=== PATIENT | female | born 1955 | race Two or more races ===

== ENCOUNTER → 2024-12-31 | Outpatient (CLI) | payer MEDICARE, MEDICAID, SELFPAY ==
--- NOTE | 2024-12-31 09:37 | XR_ITS ---
Examination: Sinus series 4 views TECHNIQUE: Devon Carbajal lateral submentovertex sinus series 4 views Exam date and time: December 31 2024 0948 hours INDICATIONS: Sinus pressure and pain 2 years. FINDINGS: Significant opacity frontal ethmoid air cells Mucosal thickening up to 15 mm in the right maxillary antrum Haziness in the frontal air cells IMPRESSION: Chronic pansinusitis, most severe frontal ethmoid air cells
== END | disposition home or self-care (01) ==
PROVIDERS: PCP Internal Medicine; Referring Provider Internal Medicine; Visit Provider Internal Medicine
DX: J32.4 Chronic pansinusitis (principal)
CPT/HCPCS: 70220

== ENCOUNTER → 2025-03-13 | Outpatient (CLI) | payer MEDICARE, MEDICAID, SELFPAY ==
--- NOTE | 2025-03-13 12:42 | XR_ITS ---
Examination: Knee, right , 3 views Technique: Knee AP, lateral, oblique 3 views Date and time of exam: March 13, 2025 1426 hours INDICATIONS: Knee surgery right knee one year ago, right knee pain onset one week. FINDINGS: Prominent osteopenia Total right knee arthroplasty. Satisfactory alignment. No fracture. No loosening of the prosthetic components Small knee effusion IMPRESSION: Total right knee arthroplasty with satisfactory alignment
== END | disposition home or self-care (01) ==
PROVIDERS: PCP Internal Medicine; Referring Provider Orthopaedic Surgery; Visit Provider Orthopaedic Surgery
DX: M25.561 Pain in right knee (principal); Z96.651 Presence of right artificial knee joint
CPT/HCPCS: 73562

== ENCOUNTER → 2025-05-15 | Outpatient (CLI) | payer MEDICARE, MEDICAID, SELFPAY ==
--- NOTE | 2025-05-15 14:13 | XR_ITS ---
Examination: PA lateral chest 2 views TECHNIQUE: Upright PA lateral chest 2 views Date and time: 01/15/2025 1434 hours Comparison November 24, 2023 INDICATIONS: Dyspnea today FINDINGS: Normal heart size The lungs are clear. Moderate osteopenia IMPRESSION: No active disease
== END | disposition home or self-care (01) ==
PROVIDERS: PCP Internal Medicine; Referring Provider Internal Medicine; Visit Provider Internal Medicine
DX: R06.00 Dyspnea, unspecified (principal)
CPT/HCPCS: 71046

== ENCOUNTER → 2025-05-16 | Outpatient (CLI) | payer MEDICARE, MEDICAID, SELFPAY ==
[2025-05-16 08:13] LABS: Collection Type, Urine Clean Catch
[2025-05-16 08:29] LABS: Basophils % (Auto) 0 % (0-2.5); Eosinophils # (Auto) 0.1 Thou/mm3 (0.0-0.5); Eosinophils % (Auto) 1 % (0-10); Hematocrit 42.3 % (36.0-46.0); Immature Granulocytes % (Auto) 0 % (0-0); Immature Granulocytes Auto 0.01 Thou/mm3 (0.00-0.00); Lymphocytes # (Auto) 2.4 Thou/mm3 (1.0-4.8); Lymphocytes % (Auto) 35 % (10-50); Mean Corpuscular HGB Conc 33.1 g/dl (31.0-37.0); Mean Corpuscular Volume 91 fL (80-100); Monocytes # (Auto) 0.5 Thou/mm3 (0.0-0.8); Monocytes % (Auto) 7 % (0-12); Neutrophils # (Auto) 3.8 Thou/mm3 (1.8-7.7); Neutrophils % (Auto) 56 % (37-80); Nucleated Red Blood Cell % 0 /100 WBC (0); Platelet Count 258 Thou/mm3 (140-440); RDW Standard Deviation 43.9 fL (36.4-46.3); Red Blood Count 4.67 Miln/mm3 (4.00-5.20); White Blood Count 6.8 Thou/mm3 (3.6-11.0)
[2025-05-16 08:39] LABS: Bilirubin,Urine Negative (Negative); Blood,Urine Negative (Negative); Clarity,Urine Clear (Clear/Hazy); Color,Urine Lt-Yellow (Lt Yel-Yel); Culture Indicated,Urine Not Indicated; Glucose, Urine Negative (Negative); Ketones,Urine Negative (Negative); Leukocyte Esterase,Urine Negative (Negative); Nitrite,Urine Negative (Negative); PH,Urine 6.5 (5.0-7.0); Protein,Urine Negative (Neg - Trace); RBC,Urine 3 /hpf (0-3); Specific Gravity,Urine 1.014 (1.001-1.035); Squamous Epithelial Cell,Urine < 1 /hpf (0-5); Urobilinogen,Urine Negative mg/dL (0.0-1.0); WBC,Urine 1 /hpf (0-5)
[2025-05-16 08:42] LABS: Glucose Estimated Average 120 mg/dL (80-131); Hemoglobin A1C 5.8 % Hgb (4.8-6.0)
[2025-05-16 08:49] LABS: Vitamin D 25 Hydroxy Total 26.4 ng/mL (7.3-40.2)
[2025-05-16 08:50] LABS: Alanine Aminotransferase 11 U/L (10-49); Albumin, Serum 4.1 gm/dL (3.4-4.8); Albumin/Globulin Ratio 1.5 (1.2-2.2); Alkaline Phosphatase 86 U/L (46-116); Anion Gap 7 (7-16); Aspartate Amino Transferase 20 U/L (0-34); BUN/Creatinine Ratio 16 Ratio (12-20); Bilirubin,Total 0.7 mg/dL (0.3-1.2); Blood Urea Nitrogen 11 mg/dL (9-23); Calcium 9.3 mg/dL (8.3-10.6); Calcium (Corrected) 9.3 mg/dL (8.5-10.1); Cardiac Risk Estimate 3.5 RATIO (3.7-5.6); Chloride 107 mMol/L (98-107); Cholesterol 214 mg/dL (132-200); Creatinine (Component) 0.7 mg/dL (0.6-1.3); Free T4 (Free Thyroxine) 1.18 ng/dL (0.89-1.76); Globulin 2.8 gm/dL (2.3-3.5); Glucose 113 mg/dL (74-106); HDL Cholesterol 61 mg/dL (40-60); LDL Cholesterol,Calculated 123 mg/dL (0-130); Osmolality,Calculated 283 (275-295); Potassium 4.4 mMol/L (3.4-5.1); Sodium 142 mMol/L (136-145); Thyroid Stimulating Hormone 1.18 uIU/mL (0.55-4.78); Total Protein 6.9 gm/dL (5.7-8.2); Triglycerides 150 mg/dL (30-150); eGFR > 60 See Note
== END | disposition home or self-care (01) ==
LOC: COPL 07:47
PROVIDERS: PCP Internal Medicine; Referring Provider Internal Medicine; Visit Provider Internal Medicine
DX: M19.90 Unspecified osteoarthritis, unspecified site (principal); E11.9 Type 2 diabetes mellitus without complications; E03.9 Hypothyroidism, unspecified; E55.9 Vitamin D deficiency, unspecified
CPT/HCPCS: 36415; 80053; 80061; 81001; 82306; 83036; 84439; 84443; 85025

== ENCOUNTER 2025-07-20 10:13 | Emergency (ER) | payer MEDICARE, MEDICAID, SELFPAY ==
[2025-07-20 10:14] VITALS: BMI 26.4
[2025-07-20 10:31] VITALS: BP 117/72; PULSE 79; RESP 19; TEMP 36.8; O2SAT 95
--- NOTE | 2025-07-20 10:32 | EDNOTE_ITS ---
ED Neck Injury Pain RME/HPI General Chief Complaint: Fever Stated Complaint: FEVER/WEAK/VOMITING/SORE THROAT/DIARRHEA x 2 WEEKS Time Seen by Provider: 07/20/25 10:16 Source: patient and family Arrival date/time: 07/20/25 10:13 Mode of arrival: ambulatory Limitations: no limitations RME / HPI RME / HPI Narrative: Patient is a 70-year-old female with no significant past medical history is in emergency room brought in by her son with concerns for sore throat for the last few days. Denies fevers chills nausea vomiting chest pain palpitations cough runny nose. No recent travel no sick contacts. Patient states that she has been taking ampicillin at home that she got from [place] and has taken a few pills. Does not take any medications, no allergies to medication Related Data Home Medications ?Medication ?Instructions ?Recorded ?Confirmed atorvastatin 40 mg tablet 40 mg PO DAILY 12/28/2312/20 Allergies Allergy/AdvReac Type Severity Reaction Status Date / Time acetaminophen (From [place]) Allergy Severe Dizziness Verified 07/20/25 10:19 hydrocodone (From [place]) Allergy Severe Dizziness Verified 07/20/25 10:19 Penicillins Allergy Severe Dizziness Verified 07/20/25 10:19 codeine AdvReac Severe VOMITING, Verified 07/20/25 10:19 FAST HEART RATE morphine AdvReac Severe VOMITING , Verified 07/20/25 10:19 RAPID HEART RATE UNABLE TO TOLERATE ED Exam General Limitations: Present no limitations General appearance: Present alert Head Head exam: Present atraumatic and normocephalic Eye Eye exam: Present normal appearance, PERRL and EOMI ENT ENT exam: Present normal exam and normal oropharynx (Mildly erythematous oropharynx, uvula is midline, no purulence appreciated on inspection of oropharynx there are below tongue, tongue is not elevated nondeviated, no cervical lymphadenopathy.) Neck Neck exam: Present normal inspection Chest Chest inspection: Present normal inspection and symmetric chest wall rise Respiratory Respiratory exam: Present normal lung sounds bilaterally; Absent respiratory distress, wheezes or stridor Cardiovascular Cardiovascular exam: Present normal rhythm Abdominal Exam Abdominal exam: Present soft Back Exam Back exam: Present normal inspection Neurological Exam Neurological exam: Present alert, oriented X3, CN II-XII intact and normal gait; Absent motor sensory deficit Psychiatric Psychiatric exam: Present normal affect and normal mood Skin Skin exam: Present warm and dry Course Quality Measures none Orders Category Date Time Status Bedside COVID-19 Antigen Test NOW Care 07/20/25 10:31 Completed Bedside Influenza A&B Antigen Test NOW Care 07/20/25 10:31 Completed Strep A Rapid Stat Lab 07/20/25 10:44 Completed Dexamethasone Inj [Decadron Inj] Med 07/20/25 10:31 Discontinued 10 mg IM X1 ONE Vital Signs Vital signs: Vital Signs Temperature 98.3 F 07/20/25 10:31 Pulse Rate 79 07/20/25 10:31 Respiratory Rate 19 07/20/25 10:31 Blood Pressure 117/72 07/20/25 10:31 Pulse Oximetry (%) 95 07/20/25 10:31 Oxygen Delivery Method Room Air 07/20/25 10:31 Neck Pain MDM Narrative MDM Narrative:: Patient is a 70-year-old female that seen emerged primary concerns for sore throat for the last couple days. Vital signs and exam as above. Concern for viral pharyngitis, strep throat, among others. Patient without any oropharyngeal swelling, no lymphadenopathy, patient is able to handle her secretions without any difficulty, tolerating oral intake, no stridor. Less likely RPA, [employer], Víctor's angina at this time. Patient is not in any distress. Will proceed with swabs for COVID flu as well as strep. Also medication for s ymptom relief swabs (-), will dc to home with close return precautiosn and follow up with pcp Patient data External records reviewed:: [facility] previous records Clinical information provided by:: patient Social determinants that could affect healthcare access:: none Patient has the following chronic illnesses:: None How is presenting disease/condition affected by chronic disease/condition?: no chronic disease Evaluation data The following diagnostics were reviewed and interpreted by me:: lab results Lab and/or radiology exams considered but not ordered:: None Interpretation Summary: Centimeters Medications / Prescriptions Medications or Prescriptions considered but not ordered:: None Medication administrations:: Medication Administration History Discontinued Medications Dexamethasone Sodium Phosphate (Dexamethasone Sod Phos Inj 10 Mg/Ml Vial) 10 mg IM X1 ONE Stop: 07/20/25 10:32 Last Admin: 07/20/25 10:59 Dose: 10 mg Documented By: See above Consultations Consultation(s) initiated? (list below): No Diagnosis Neck Differential Diagnosis: other (Pharyngitis, strep throat,) Most likely diagnosis given after review of the tests above:: Pharyngitis Admission Indicated Admission indicated?: not indicated Admission Request Was there a request for admission?: No Disposition Plan Disposition Plan: Discharge Discharge Attestation Discharge Attestation: The patient and all family members were given an opportunity to ask questions and understood the discharge instructions. Discharge instructions specifically effects, indications for sooner follow up or return to the emergency department, and the expected course of current diagnosis. Patient condition: Stable Discharge Plan Plan Patient Disposition: HOME (Self Care) Prescriptions/Referrals Prescriptions/Med Rec: No Action atorvastatin 40 mg tablet 40 mg PO DAILY Patient Comments: TAKE 1 TABLET BY MOUTH NIGHTLY Problem List Clinical Impression: Pharyngitis Patient/Caregiver Discharge Instructions Education Materials: Self-Care for Sore Throats Additional Instructions: La mayoria de las causas de dolor de garganta son virales, las cual antibiotico no le va ayudar. Le recomiendo megan miel de abeja rosenda cucharita olesya veces por la nena o utilizar medicamentos jonas halls o vicks sore throat spray para angelique sintomas. Regresar si tiene nuevos sintomas o sintomas de preocupacion o dificultad con la respiracion. Print Language: Greenlandic Stand Alone Forms: [employer] Award Info., Patient Portal Info Letter
[2025-07-20] MEDS: DEXAMETHASONE SOD PHOS INJ 10 MG/ML VIAL IM (10:59)
[2025-07-20 11:44] LABS: Strep A Rapid Negative (Negative)
== END 2025-07-20 13:33 | disposition home or self-care (01) ==
LOC: SERX 11:29
PROVIDERS: Emergency Provider Emergency Medicine
DX: J02.9 Acute pharyngitis, unspecified (principal)
CPT/HCPCS: 87400; 87651; 87811; 96372; 99282; J1100

== ENCOUNTER → 2025-10-15 | Outpatient (BNVA) | payer MEDICARE, MEDICAID, SELFPAY | END | disposition home or self-care (01) | PROVIDERS: PCP Nurse Practitioner Family; Referring Provider Nurse Practitioner Family; Visit Provider Nurse Practitioner Family | DX: Z00.00 Encounter for general adult medical examination without abnormal findings (principal); R73.03 Prediabetes; E78.5 Hyperlipidemia, unspecified; Z28.21 Immunization not carried out because of patient refusal | CPT/HCPCS: 99203 ==